=== PATIENT | male | born 1975 | race Caucasian/White ===

== ENCOUNTER 2017-01-25 00:39 | Observation (INO) | payer OTHER ==
[~2017-01-25] VITALS: Ht 172.7 cm; Wt 141.0 kg
--- NOTE | 2017-01-25 03:20 | NUR ---
PT ARRIVED TO UNIT FROM E.D VIA STRETCHER. PT AMBULATES INDEPENDENTLY IN ROOM, STEADY ON FEET. PT UP TO BATHROOM, VOIDING IN URINAL WITHOUT DIFFICULTY. IV FLUIDS INITIATED PER MD ORDERS, IV SITE PATENT AND INTACT. ADMISSION AND HISTORY COMPLETE. PT ALERT AND ORIENTED. PT DENIES ANY N/V, SOB, CHEST PAIN, PAIN AT THIS TIME. PT STATES PAIN MEDICATION GIVEN IN ED WAS EFFECTIVE FOR EPIGASTRIC PAIN. SCD'S IN PLACE. PT DROWSY, BUT EASILY AROUSABLE. CALL LIGHT WITHIN REACH. PT DENIES ANY FURTHER NEEDS AT THIS TIME.
--- NOTE | 2017-01-25 04:00 | NUR ---
PER REPORT FROM Jaci PT DESATS DURING SLEEP, PLACED PT ON 2 LPM O2 VIA NASAL CANNULA. PT HAS HX [place]O WITH NONCOMPLIANCE OF CPAP. PT COOPERATIVE WITH WEARING O2.
--- NOTE | 2017-01-25 06:46 | NUR ---
PT RESTING IN BED SLEEPING, WAKES EASILY TO VERBAL STIMULATION. PT AMBULATING INTO BATHROOM INDEPENDENTLY, VOIDING IN URINAL WITHOUT DIFFICULTY. IV FLUIDS INFUSING WITHOUT DIFFICULTY. PT DENIES ANY PAIN, N/V AT THIS TIME. CALL LIGHT WITHIN REACH. PT DENIES ANY FURTHER NEEDS AT THIS TIME.
--- NOTE | 2017-01-25 07:30 | NUR ---
PT IN BED, AWAKE, ALERT. RECIEVED BEDSIDE REPORT FROM RADHA MARCH.
--- NOTE | 2017-01-25 08:45 | NUR ---
PATIENT UP TO USE BATHROOM. NO NEEDS AT THIS TIME. LET PATIENT KNOW I WILL BE BACK IN TO TALK ABOUT A SHOWER.
--- NOTE | 2017-01-25 09:20 | NUR ---
PT IN BED, RECIEVING IV BOLUS. ALERT, ORIENTED X 4. REPORTS THAT HE REALLY WANTS TO SMOKE A CIGARETTE, STATES THAT HE WOULD GO OUT FRONT OF THE HOSPITAL AND SMOKE IF HE WERE ABLE TO. OFFERED TO REQUEST NICOTINE REPLACEMENT, PT REFUSED. STATED THAT HE DOES NOT LIKE NICOTINE PATCHES, GUM, OR LOZENGES. STATES "MY PAIN LEVEL IS FINE RIGHT NOW".
--- NOTE | 2017-01-25 10:33 | NUR ---
PT IN BED, DENIES NEEDS. IVF INFUSING. PT REMAINS NPO.
--- NOTE | 2017-01-25 10:40 | NUR ---
PATIENT LAYING DOWN IN BED WATCHING TV. CALL BUTTON IN REACH. LEFT TOOTH BRUSH OUT FOR HIM TO USE WHEN NEEDED. TALKED ABOUT TAKING A SHOWER THIS AFTERNOON BEFORE SURGERY. PATIENT STATES THAT HE'S GOING TO GO OUTSIDE TO SMOKE WHEN HIS ARRIVES. LET PATIENT KNOW OUR POLICY ABOUT NO SMOKING ON HOSPITAL GROWNS. PATIENT UPSET. NOTIFIED CHARGE NURSE.
--- NOTE | 2017-01-25 11:00 | NUR ---
PATIENT CALLED TO SHOWER. WHEN I ENTERED THE ROOM PATIENT DESIDED THAT HE WILL WAIT TO SHOWER AFTER HIS GETS HER AND GOES OUTSIDE WITH HIM TO SMOKE. REMINDED PATIENT ABOUT OUR POLICY AND WHY WE HAVE OUR POLICY. PATIENT STATES THAT HE IS VERY STUBORN. NOTIFY CHARGE NURSE. CHARGE NURSE INTO SEE PATIENT.
--- NOTE | 2017-01-25 11:00 | NUR ---
ASKED BY STAFF TO SPEAK WITH PATIENT REGARDING WANTING TO GO OUT TO SMOKE. SPOKE WITH PATIENT IN ROOM. SOCIAL SERVICE ASSESSMENT DONE. DISCUSSED PATIENTS QUESTIONS REGARDING GOING OUTSIDE TO SMOKE. EXPLAINED NON-SMOKING POLICY ON ALL GROUNDS. OFFERED TO CONTACT DR REGARDING USING A PATCH OR OTHER NICOTINE DEVICES. PATIENT REFUSED. CHARGE NURSE CAME INTO THE ROOM, SHE ALSO SPOKE WITH HIM AND OFFERED NICOTINE DEVICES. HE REFUSED AGAIN. EXPLAINED IF HE CHANGED HIS MIND, WE CAN STILL CALL .
--- NOTE | 2017-01-25 11:20 | NUR ---
RN IN ROOM WITH PATIENT. CALL BUTTON IN REACH.
--- NOTE | 2017-01-25 11:26 | NUR ---
CALL TO DR. MCHUGH REGARDING PATIENT WANTING TO LEAVE THE BUILDING AND SMOKE. ORDER FOR 1MG OF IV ATIVAN AND NICOTINE PATCH. MEDICATIONS GIVEN TO PATIENT.
--- NOTE | 2017-01-25 13:40 | NUR ---
PATIENT RESTING IN BED WITH EYES CLOSED. PATIENT TOO SLEEPY FROM MEDICATION TO SHOWER AT THIS TIME. CALL BUTTON IN REACH.
--- NOTE | 2017-01-25 13:41 | NUR ---
PT SLEEPING SOUNDLY, NO S/S DISTRESS OR DISCOMFORT. SCHEDULED ANCEF IV GIVEN.
--- NOTE | 2017-01-25 15:08 | NUR ---
PT TO DAY SURGERY VIA STRETCHER ACCOMPANIED BY RADHA MICHAEL.
--- NOTE | 2017-01-25 17:22 | NUR ---
PATIENT WAS INSTRUCTED ON SURGICAL [place]IP[place]OWN, AND LEFT TO COMPLETE IT. INSTEAD, PATIENT GAVE HIMSELF A SHOWER. IV WAS NOT WRAPPED AND NURSE WAS NOTIFIED.
--- NOTE | 2017-01-25 17:42 | NUR ---
01/25/17 1742 Corrie Rodriguez 1735-PATIENT ARRIVED TO PACU ON 9L MASK O2 SAT 98% NONAROUSABLE. SR. 3 LAP SITES TO ABDOMEN CDI. 174-PATIENT AROUSING PULLING AT O2 MASK AND RUBBING FACE. PATIENT EDUCATED ON IMPORTANCE OF MASK AND REORIENTED TO SITUATION. SNORES DOES HAVE SLEEP APNEA AND DOES NOT USE CPAP. 174-PATIENT SLEEPING O2 92% SNORING RA.
[2017-01-25] MEDS ORDERED: NICOTINE PATCH1 EAC1 TD (17:56)
[2017-01-25] MEDS ORDERED: NORCO 5-325 TA1 EACH PO (17:57)
--- NOTE | 2017-01-25 18:34 | NUR ---
PT TO FLOOR, TO ROOM 124 VIA STRETCHER ACCOMPANIED BY JACKSON AIRCRAFT MAINTENANCE DIRECTOR. PT MOVED SELF FROM STRETCHERS TO BED BY SCOOTING OVER. , FRANSISCO IN ROOM WITH PT. RECIEVED BEDSIDE REPORT FROM RADHA PAZ. PT TO ROOM 124 AT 1825. PT AWAKE BUT DROWSY. HAS 4 LAP SITES TO ABDOMEN, 1 ABOVE UMBILICUS, 1 SUPERIOR TO THAT, 1 RUQ, 1 RLQ. STERI STRIPS INTACT TO ALL 4, SMALL AMOUNT OF SANGUAINOUS DRAINAGE PRESENT TO ALL 4 SITES. PT IS ON 3L O2 VIA NC, SAT 95%.
--- NOTE | 2017-01-25 19:05 | NUR ---
PT TOLERATED CLEAR LIQUIDS, IS NOW EATING PUDDING AND GRAHM CRACKERS. DENIES NAUSEA. PT USED INSENTIVE SPIROMETER. EDUCATED ON USE, PT VERBALIZED UNDERSTANDING.
--- NOTE | 2017-01-25 19:50 | NUR ---
PT ASSESSMENT COMPLETE. PT RATES ABD PAIN 5-6/10, PT STATES "IT'S NOT BAD". OFFERED PAIN MEDICATION, PT STATES HE WOULD LIKE A BOXED LUNCH FIRST WHICH HAS BEEN ORDERED. PT UP TO BATHROOM WITH SBA, TOLERATING AMBULATION WELL. PT HAS PRODUCTIVE COUGH. PT ON 3 LPM O2 VIA NASAL CANNULA, SATS 95% PER CONTINUOUS PULSE OXIMETER. PT DENIES ANY N/V, TOLERATING JELLO AND PUDDING AT THIS TIME. LAP SITES x4 TO ABD HAVE STERI STRIPS THAT ARE INTACT, SHADOWING NOTED. REINFORCED UMBILICUS SITE WITH GAUZE. IV FLUIDS INFUSING WITHOUT DIFFICULTY. VS COMPLETE. PT NOW AMBULATING IN THE GARDNER WITH STRAIGHTENING MACHINE OPERATOR, TOLERATING AMBULATION WELL. PT DENIES ANY FURTHER NEEDS AT THIS TIME.
--- NOTE | 2017-01-25 20:04 | NUR ---
AMBULATE PATIENT AROUND THE NURSE STATION X1. PATIENT DENIED ANY DIZZINES AND NAUSEA. PATIENT TOLARATED WELL, STATED PAIN IS IN NO.5.
--- NOTE | 2017-01-25 21:30 | NUR ---
PT RATES PAIN 5-6/10, 2 TABS NORCO GIVEN. PT STATES "THEY DON'T WORK, BUT I WILL TRY THEM I GUESS". APPLESAUCE BROUGHT TO PT PER PT REQUEST. PT TOLERATING PO WELL. IV FLUIDS INFUSING WITHOUT DIFFICULTY. ABDOMINAL LAP SITES REMAIN UNCHANGED, STERI STRIP WITH SHADOWING NOTED. CALL LIGHT WITHIN REACH. PT DENIES ANY FURTHER NEEDS AT THIS TIME.
--- NOTE | 2017-01-25 23:50 | NUR ---
PT SLEEPING, RR EVEN AND UNLABORED. PT APPEARS COMFORTABLE AT THIS TIME. SATS 95% ON 3 LPM O2. IV FLUIDS INFUSING WITHOUT DIFFICULTY. CALL LIGHT WITHIN REACH.
--- NOTE | 2017-01-26 00:40 | NUR ---
BOXED LUNCH GIVEN PER PT REQUEST. PT TOLERATING PO WELL. IV FLUIDS INFUSING WITHOUT DIFFICULTY. ABDOMINAL LAP SITES DRESSING UNCHANGED, SHADOWING NOTED TO STERI STRIPS. CALL LIGHT WITHIN REACH. PT DENIES ANY FURTHER NEEDS AT THIS TIME.
--- NOTE | 2017-01-26 02:38 | NUR ---
PT SLEEPING, RR EVEN AND UNLABORED. PT APPEARS COMFORTABLE AT THIS TIME. PT ON 3 LPM O2 VIA NASAL CANNULA. IV FLUIDS INFUSING WITHOUT DIFFICULTY. CALL LIGHT WITHIN REACH.
--- NOTE | 2017-01-26 04:45 | NUR ---
PT UP TO BATHROOM INDEPENDENTLY, VOIDING WELL. PT DENIES ANY NEED FOR PAIN MEDICATION AT THIS TIME. IV FLUIDS INFUSING WITHOUT DIFFICULTY. PT UP AMBULATING IN HALLS WITH WELLNESS RN, TOLERATING AMBULATION WELL. COFFEE AND WATER GIVEN PER PT REQUEST. PT DENIES ANY FURTHER NEEDS AT THIS TIME.
--- NOTE | 2017-01-26 06:00 | NUR ---
PT UP AMBULATING IN ROOM INDEPENDENTLY. PT C/O HAVING IV FLUIDS AND BEING ON A CONTINUOUS PULSE OXIMETER. CALLED MD AND RECEIVED ORDER TO SALINE LOCK FLUIDS.
--- NOTE | 2017-01-26 07:45 | NUR ---
ASSISTED PATIENT WITH ORDERING BREAKFAST. NO OTHER NEEDS AT THIS TIME. CALL BUTTON IN REACH.
--- NOTE | 2017-01-26 08:00 | NUR ---
PATIENT SITTING UP IN BED WATCHING TV AND EATING BREAKFAST. NO OTHER NEEDS AT THIS TIME.
--- NOTE | 2017-01-26 10:06 | NUR ---
PATIENT SITTING UP IN BED WATCHING TV. WASHED FACE AND HANDS. SHOWED PATIENT ORAL CARE SUPPLIES OUT FOR USE. PATIENT REFUSED SHOWER AND CLEAN GOWN. HE STATES THAT HE MIGHT GET TO GO HOME TODAY AND IF NOT HE'S LEAVING ANYWAYS SO HE CAN SMOKE A CIGARRETE. CALL BUTTON IN REACH. FRESH ICE WATER AND PUDDING GIVEN. NO OTHER NEEDS AT THIS TIME.
--- NOTE | 2017-01-26 10:59 | NUR ---
PT WALKING IN HALLWAY IWTH . STATES THE NORCO HAS HELPED AND IT NOW ONLY HURTS WHEN HE FIRST STANDS UP. DENIES FURTHER CONCERNS.
--- NOTE | 2017-01-26 13:20 | NUR ---
Patient in and out of room drinking coffee and walking up to nurses station and back to room.
--- NOTE | 2017-01-26 13:57 | NUR ---
PT CONTINUES TO PACE THE HALLWAY. ANXIOUS TO BE DISCHARGED.
--- NOTE | 2017-01-26 15:17 | NUR ---
PT DISCHARGED HOME WITH . IV REMOVED WNL. PT TOLERATED WELL ALTHOUGH DID NOT APPRECIATE THE HAIR REMOVAL. EDUCATION GIVEN. PT AND VERBALIZED UNDERSTANDING. DRESSINGS CLEAN, DRY AND INTACT. INSTRUCTED ON MEDICATIONS, INCISION SITES, FOLLOWUP APPT AND CALLING THE OFFICE FOR WORK RELEASE. VS STABLE.
--- NOTE | 2017-02-19 07:48 | OR ---
[facility] [address], [place] [address] Signed DATE OF PROCEDURE: 01/25/17 PREOPERATIVE DIAGNOSES Acute calculous cholecystitis with hydrops. Morbid obesity. Sleep apnea. POSTOPERATIVE DIAGNOSES Acute calculous cholecystitis with hydrops. Morbid obesity. Sleep apnea. PROCEDURES Laparoscopic cholecystectomy with intraoperative cholangiogram, prolonged, complicated, difficult. Surgeon directed fluoroscopy. SURGEON: Davian Mchugh MD. ANESTHESIA General endotracheal (Bhavna Finley CRNA) and local 20 mL of 0.25% Marcaine with Epinephrine. INDICATION This 42-year-old morbidly obese white man weighs nearly 309 pounds and has had episodes of biliary colic and right upper abdominal pain for many months. He moved recently from [place], [place] to [place]. He had been evaluated in [place], [place] for this and was noted to have gallstones, but was dissuaded from operation due to his risk of operation at least according to the patient. He has had unrelenting pain since 8:00 p.m. last night and was found on ultrasound to have a distended gallbladder with a single gallstone causing gallbladder hydrops. Admittedly, he is quite obese and has numerous comorbidities including sleep apnea syndrome (previously treated since discontinued), continued smoking, and other morbidities. He has been fluid resuscitated and given antibiotics and is taken to operation at this time for cholecystectomy. The risks of bleeding, infection, bile duct injury, need for open procedure, and other unforeseen complications was reviewed in detail. He understands and wished to proceed. FINDINGS His airway, though slightly challenging, was accomplished without problem by the lead designer using a GlideScope. At operation, he was found to have a remarkably fatty Electronically Signed By: DAVIAN MCHUGH MD 02/19/17 0748 PATIENT NAME: YULIYA SMITH OPERATIVE REPORT DATE OF : 73 PHYSICIAN: DAVIAN MCHUGH MD REPORT #: [id number] REPORT IS CONFIDENTIAL AND NOT TO BE RELEASED WITHOUT AUTHORIZATION [facility] [address], [place] [address] Signed liver. The gallbladder was markedly distended and inflamed. Operation was prolonged, complicated, and difficult on the basis of his obesity and so on. It was accomplished safely however. Intraoperative cholangiogram was normal. The cystic duct was relatively long. The gallbladder once excised showed acute and chronic inflammatory changes to mucosa and the gallstone that had been wedged in the infundibulum was teardrop shaped and approximately 2-3 cm in length and 2 cm in width. There was a small umbilical hernia at the umbilicus proper with some omental fat within it. This was not disturbed. A supraumbilical incision was used. DESCRIPTION OF PROCEDURE The patient was brought to the operating room, given a general endotracheal anesthetic with GlideScope technique. This went without complication. Preoperative antibiotic Ancef was given. Sequential compression device stockings used and Heparin subcutaneously administered. The abdomen was clipped and prepared with a Chlorhexidine solution. Due to his rather enormous abdominal girth, it was clear that modification to approach would be necessary. Palpation at the umbilicus revealed a small nonreducible hernia, probably a fat. A supraumbilical incision was made and using an open Noé cannula technique, pneumoperitoneum was achieved to a level of 14 mmHg of carbon dioxide gas. Intraabdominal inspection was undertaken showing no sign of ascites or carcinomatosis. The omentum was draped over the right lobe of the liver. The liver was markedly fatty and had impressions on it from the ribs. Three additional trocars were placed in usual configuration, midline, right midclavicular, and right anterior axillary line. The gallbladder was revealed and found to be tensed and distended and hydropic as expected but able to be grasped. Elevation of the gallbladder demonstrated just how heavy the right lobe of the liver was. As it could not be fully elevated over the edge, the midportion was grasped and then this allowed for elevation. The infundibulum was grasped and using blunt and electrocautery dissection, the triangle of Calot was dissected free. Very edematous and fatty peritoneum overlying the infundibulum was noted. Ultimately, the cystic artery and cystic duct were identified. The cystic artery was doubly clipped and divided. A clip was applied across gallbladder cystic duct junction and a transverse choledochotomy made in the cystic duct. Egress of clear yellow bile was noted. Using an Compass-EOS type cholangiocatheter system, intraoperative cholangiography was undertaken with surgeon directed fluoroscopy. Free flow of contrast was noted into the biliary tree with prompt emptying into the duodenum. There was no sign of filling defect or biliary anomaly. The proximal biliary radicals were normal as well. The catheter was removed and the cystic duct was triply clipped and divided and the gallbladder dissected free in a retrograde fashion using electrocautery. The gallbladder was placed in an Endobag and extracted through the infraumbilical port site, opened on the back table and found to have chronic and acute inflammatory changes of mucosa and a single large teardrop shaped gallstone which was quite large. There was no sign of neoplasm. Irrigation was undertaken in subhepatic space. There was no sign of bile leak, bleeding, Electronically Signed By: DAVIAN MCHUGH MD 02/19/17 0748 PATIENT NAME: YULIYA SMITH Adilia OPERATIVE REPORT DATE OF : 73 PHYSICIAN: DAVIAN MCHUGH MD REPORT #: [id number] REPORT IS CONFIDENTIAL AND NOT TO BE RELEASED WITHOUT AUTHORIZATION [address] [place], [place] [address] Signed or other problems. The trocars were removed under direct visualization showing no sign of bleeding. Infraumbilical and epigastric port sites were closed with interrupted 0 Vicryl suture and additionally 2-0 PDS suture based on his obesity. Palpation of the umbilical defect in visualization as well showed a small amount of omentum to have been in the 1 cm defect at the umbilicus. This umbilical hernia was left undisturbed. There was certainly no hollow viscus within it or potentially to go into it. Steri-Strips were applied after injection of 20 mL of 0.25% Marcaine with Epinephrine. The patient was carefully extubated and transferred to recovery in good condition having suffered no complication. Sponge, needle, and counts reported as correct x3. MD ERNST Maciel/Radha /[id number] cc: Nanette Hancock MD Electronically Signed By: DAVIAN MCHUGH MD 02/19/17 0748 PATIENT NAME: YULIYA SMITH OPERATIVE REPORT DATE OF : 73 PHYSICIAN: DAVIAN MCHUGH MD REPORT #: [id number] REPORT IS CONFIDENTIAL AND NOT TO BE RELEASED WITHOUT AUTHORIZATION
--- NOTE | 2017-02-19 08:27 | HP ---
[facility] [address], [place] [address] Signed DATE OF ADMISSION: 01/25/17 REASON FOR ADMISSION Acute calculous cholecystitis with hydrops of gallbladder. HISTORY OF PRESENT ILLNESS This morbidly obese white man, recently moved from [place] to [place]. He has taken a new job at [employer]. He is and has 3 children. He has had episodes of right upper abdominal pain over a number of months. Most recently, yesterday, he had unremitting right subcostal pain. After 2 hours of severe pain, he presented to the emergency room. He was already known to have gallstones based on ultra sound performed in [place] ([place], [place] area). The gallbladder ultrasound was once again performed under the direction of Dr. Hancock, which confirmed a hydropic gallbladder with a stone obstructing the gallbladder. He is admitted for further evaluation and care. PAST MEDICAL HISTORY Includes tonsillectomy in the distant past as well as right leg abscess. He has never had abdominal surgery. MEDICATIONS: He does not take medications usually. ALLERGIES: He has no known drug allergies. SOCIAL HISTORY He is and as described he has 3 children. 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 He is quite anxious to return to work. He does not want to lose his job, he says. REVIEW OF SYSTEMS He denies any chest pain. He has had no shortness of breath. Denies dysphagia or hematemesis or blood per rectum. No dysuria. PHYSICAL EXAMINATION GENERAL: Morbidly obese, white man. HEENT: Examination of his oropharynx shows a very difficult airway, it appears to me. Trachea is midline. CHEST: Clear. HEART: Regular without murmur. ABDOMEN: Obese, but soft. There is no significant tenderness at this moment on deep palpation. EXTREMITIES: No clubbing, cyanosis, or edema. LABORATORY DATA Electronically Signed By: DAVIAN MCHUGH MD 02/19/17 0827 PATIENT NAME: YULIYA SMITH HISTORY AND PHYSICAL DATE OF : 73 PHYSICIAN: DAVIAN MCHUGH MD REPORT #: [id number] REPORT IS CONFIDENTIAL AND NOT TO BE RELEASED WITHOUT AUTHORIZATION [facility] [address], [place] [address] Signed Show white count of 9.4, hematocrit 45.5, platelets 138,000. Chem profile is normal. Creatinine 1.04, glucose 144. Liver enzymes are normal. Lipase is 60. Urinalysis is normal except for specific gravity of 1.031. I have reviewed the ultrasound images available on the system currently. A dilated gallbladder is noted with somewhat thickened wall. ASSESSMENT AND PLAN He has acute cholecystitis with hydrops of the gallbladder indicative of an obstructing stone at the neck of the gallbladder. Surgical cure would include cholecystectomy. A laparoscopic approach would be most appropriate if possible, though he may require an open procedure. It is recognized that he has somewhat difficult airway, and Anesthesia consultation will be undertaken prior to operation . I would anticipate operation could be performed today. The risks of bleeding, infection, bile duct injury, need for open procedure, and other unforeseen complications was reviewed in detail. He understands. MD ERNST Maciel/Radha /[id number] cc: Nanette Hancock MD Electronically Signed By: DAVIAN MCHUGH MD 02/19/17 0827 PATIENT NAME: YULIYA SMITH Adilia HISTORY AND PHYSICAL DATE OF : 73 PHYSICIAN: DAVIAN MCHUGH MD REPORT #: [id number] REPORT IS CONFIDENTIAL AND NOT TO BE RELEASED WITHOUT AUTHORIZATION
== END 2017-01-26 15:15 | disposition home or self-care (01) ==
LOC: ED 00:39 → MS 00:40
PROVIDERS: ADMIT Surgery
PROC: BF101ZZ Fluoroscopy of Bile Ducts using Low Osmolar Contrast (ICD-10-PCS; 2017-01-25)
PROC: 0FT44ZZ Resection of Gallbladder, Percutaneous Endoscopic Approach (ICD-10-PCS; principal; 2017-01-25 16:00)
DX: K80.13 Calculus of gallbladder with acute and chronic cholecystitis with obstruction (principal); K82.1 Hydrops of gallbladder; G47.30 Sleep apnea, unspecified; F17.200 Nicotine dependence, unspecified, uncomplicated; K76.0 Fatty (change of) liver, not elsewhere classified; E66.01 Morbid (severe) obesity due to excess calories; Z68.42 Body mass index [BMI] 45.0-49.9, adult
CPT/HCPCS: 00790; 74300; 76705; 80053; 81001; 83690; 85025; 94640; 94760; 94762; 96361; 96372; 96374; 96375; 96376; 99285; 99406; G0378; J0330; J0690; J1100; J1170; J1644; J1885; J2060; J2250; J2405; J2704; J3010; J7030; J7120; Q9967

== ENCOUNTER 2017-03-21 19:27 | Emergency (ER) | payer OTHER ==
[~2017-03-21] VITALS: Ht 172.7 cm; Wt 141.0 kg
[~2017-03-21 19:27] MED LIST: NICOTINE PATCH1 EAC1 TD; NORCO 5-325 TA1 EACH PO
== END 2017-03-21 21:58 | disposition home or self-care (01) ==
LOC: ED 19:27
DX: K42.9 Umbilical hernia without obstruction or gangrene (principal); F17.200 Nicotine dependence, unspecified, uncomplicated; Z90.49 Acquired absence of other specified parts of digestive tract; Z98.890 Other specified postprocedural states
CPT/HCPCS: 74177; 80053; 81001; 83690; 85025; 96361; 96372; 96374; 99284; J1170; J2405; J7030; Q9967

== ENCOUNTER 2017-04-15 17:47 | Emergency (ER) | payer OTHER ==
[~2017-04-15] VITALS: Ht 172.7 cm; Wt 139.7 kg
[2017-04-15] MEDS ORDERED: OMEPRAZOLE20 MG PO (19:51)
== END 2017-04-15 21:20 | disposition home or self-care (01) ==
LOC: ED 17:47
DX: K27.9 Peptic ulcer, site unspecified, unspecified as acute or chronic, without hemorrhage or perforation (principal); F17.200 Nicotine dependence, unspecified, uncomplicated; Z90.89 Acquired absence of other organs; Z90.49 Acquired absence of other specified parts of digestive tract
CPT/HCPCS: 80053; 81001; 85025; 96361; 96374; 96375; 96376; 99283; J1170; J2405; J7040

== ENCOUNTER 2017-05-24 20:42 | Emergency (ER) | payer OTHER ==
[~2017-05-24] VITALS: Ht 172.7 cm; Wt 146.1 kg
[~2017-05-24 20:42] MED LIST changes: +OMEPRAZOLE20 MG PO
== END 2017-05-24 21:08 | disposition home or self-care (01) ==
LOC: ED 20:42
DX: S09.90XA Unspecified injury of head, initial encounter (principal); W20.8XXA Other cause of strike by thrown, projected or falling object, initial encounter; Y99.0 Civilian activity done for income or pay
CPT/HCPCS: 99282

== ENCOUNTER → 2017-06-18 | Emergency (ER) | payer OTHER ==
[~2017-06-18] VITALS: Ht 172.7 cm; Wt 146.1 kg
[~2017-06-18] MED LIST changes: +ONDANSETRON ODT8 MG PO
== END ==
LOC: ED 19:33
DX: K52.9 Noninfective gastroenteritis and colitis, unspecified (principal); F17.200 Nicotine dependence, unspecified, uncomplicated
CPT/HCPCS: 80053; 81001; 83690; 85025; 96374; 99284; J2405; J7030

== ENCOUNTER 2017-07-22 17:11 | Emergency (ER) | payer OTHER ==
[~2017-07-22] VITALS: Ht 172.7 cm; Wt 140.6 kg
[~2017-07-22 17:11] MED LIST changes: -ONDANSETRON ODT8 MG PO
[2017-07-22] MEDS ORDERED: ONDANSETRON ODT8 MG PO (19:36)
== END 2017-07-22 19:50 | disposition home or self-care (01) ==
LOC: ED 17:11
DX: K29.00 Acute gastritis without bleeding (principal); F17.210 Nicotine dependence, cigarettes, uncomplicated
CPT/HCPCS: 80053; 83690; 85025; 99283

== ENCOUNTER 2018-01-05 20:51 | Emergency (ER) | payer OTHER ==
[~2018-01-05] VITALS: Ht 172.7 cm; Wt 135.4 kg
[~2018-01-05 20:51] MED LIST changes: +ONDANSETRON ODT8 MG PO
[2018-01-06] MEDS ORDERED: ZOFRAN ODT4 MG PO (03:01)
[2018-01-06] MEDS ORDERED: NORCO 5-325 TA1 EACH PO (03:01)
[2018-01-06] MEDS ORDERED: GEMFIBROZIL600 MG PO (03:01)
== END 2018-01-06 03:13 | disposition home or self-care (01) ==
LOC: ED 20:51
DX: K85.90 Acute pancreatitis without necrosis or infection, unspecified (principal); E78.5 Hyperlipidemia, unspecified; F17.200 Nicotine dependence, unspecified, uncomplicated
CPT/HCPCS: 74177; 80053; 80061; 81001; 83690; 85025; 96360; 99284; J7030; Q9967

== ENCOUNTER 2018-09-06 19:11 | Emergency (ER) | payer OTHER ==
[~2018-09-06] VITALS: Ht 172.7 cm; Wt 124.5 kg
[~2018-09-06 19:11] MED LIST changes: +GEMFIBROZIL600 MG PO; +ZOFRAN ODT4 MG PO
[2018-09-06] MEDS ORDERED: LISINOPRIL20 MG PO (19:22)
[2018-09-06] MEDS ORDERED: OMEPRAZOLE20 MG PO (19:22)
[2018-09-06] MEDS ORDERED: METFORMIN HCL500 MG PO (19:22)
== END 2018-09-06 20:51 | disposition home or self-care (01) ==
LOC: ED 19:11
DX: R10.13 Epigastric pain (principal); Z90.89 Acquired absence of other organs; F17.200 Nicotine dependence, unspecified, uncomplicated; Z90.49 Acquired absence of other specified parts of digestive tract; Z79.899 Other long term (current) drug therapy
CPT/HCPCS: 80053; 81001; 83690; 85025; 96361; 96374; 99284-25; J7030

== ENCOUNTER 2018-10-17 15:26 | Emergency (ER) | payer OTHER ==
[~2018-10-17] VITALS: Ht 172.7 cm; Wt 128.6 kg
[~2018-10-17 15:26] MED LIST changes: +LISINOPRIL20 MG PO; +METFORMIN HCL500 MG PO
== END 2018-10-17 15:43 | disposition home or self-care (01) ==
LOC: ED 15:26
DX: M25.561 Pain in right knee (principal)

== ENCOUNTER 2018-10-17 15:49 | Emergency (ER) | payer OTHER ==
[~2018-10-17] VITALS: Ht 172.7 cm; Wt 128.6 kg
--- OUTSIDE RECORDS SUMMARY | 2018-10-17 15:52 | XMS ---
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 02/07/2018 18:38 - Patient eloped before treatment completed. Details: LWBS CRITERIA MET - [facility] - 2 Visits in [address] Huertas Primary [facility] Current PHONE: Unknown Milton has no Care Guidelines for this patient. E.Leatha. V[facility] COUNT (12 MO.) [facility] TOTAL 6 NOTE: Visits indicate total known visits. ED/UCC VISIT TRACKING (12 MO.) 10/17/2018 15:50 [facility] [place] TYPE: Emergency COMPLAINT: - RIGHT KNEE PAIN 10/17/2018 15:27 [facility] [place] TYPE: Emergency COMPLAINT: - RIGHT KNEE PAIN 09/06/2018 19:11 [facility] [place] TYPE: Emergency COMPLAINT: - ABD PAIN DIAGNOSES: - Other fdc (current) drug therapy - Epigastric pain - Acquired absence of other organs - Nicotine dependence, unspecified, uncomplicated - Acquired absence of other specified parts of digestive tract 02/10/2018 11:35 [facility] [place] TYPE: Emergency COMPLAINT: - BILATERAL KNEE PAIN 02/07/2018 18:38 [facility]unez [place] TYPE: Emergency COMPLAINT: - UPPER ABD PAIN/LWOB @1939 DIAGNOSES: - Procedure and treatment not carried out due to patient leaving prior to being seen by health care provider 01/05/2018 20:52 [facility] [place] TYPE: Emergency COMPLAINT: - ABDOMINAL PAIN DIAGNOSES: - Upper abdominal pain, unspecified - Nicotine dependence, unspecified, uncomplicated - Acute pancreatitis without necrosis or infection, unspecified - Hyperlipidemia, unspecified INPATIENT VISIT TRACKING (12 MO.) No inpatient visits to display in this time frame [email or web address]
== END 2018-10-17 16:10 | disposition home or self-care (01) ==
LOC: ED 15:49
DX: M25.561 Pain in right knee (principal)

== ENCOUNTER 2019-03-25 23:50 | Emergency (ER) | payer OTHER ==
[~2019-03-25] VITALS: Ht 172.7 cm; Wt 127.0 kg
--- OUTSIDE RECORDS SUMMARY | 2019-03-25 23:52 | XMS ---
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 Details: LWBS CRITERIA MET - [facility] - Has Care Guidelines CARE PROVIDERS AYAD SIMMS Physician Road Builder 10/18/2018-Current PHONE: [phone] Dr Huertas Primary Care Current PHONE: Unknown Milton has no Care Guidelines for this patient. Care History Medical/Surgical 11/09/2018 [facility] - EOIPA REFERRAL MADE- PATIENT HAS EOCCO AND NEEDS CLOSE FOLLOW UP. E.D. VISIT COUNT (12 MO.) [address] [facility] TOTAL 5 NOTE: Visits indicate total known visits. ED/UCC VISIT TRACKING (12 MO.) 03/25/2019 23:50 [facility] [place] TYPE: Emergency COMPLAINT: - L SIDE OF FACE PAIN 11/08/2018 14:09 [facility] [place] TYPE: Emergency COMPLAINT: - LT FLANK PAIN,NAUSEA,VOMITING DIAGNOSES: - Nicotine dependence, unspecified, uncomplicated - Unspecified abdominal pain 10/17/2018 15:50 [facility] [place] TYPE: Emergency COMPLAINT: - RIGHT KNEE PAIN DIAGNOSES: - Pain in right knee 10/17/2018 15:27 [facility] [place] TYPE: Emergency COMPLAINT: - RIGHT KNEE PAIN DIAGNOSES: - Pain in right knee 09/06/2018 19:11 [facility] [place] TYPE: Emergency COMPLAINT: - ABD PAIN DIAGNOSES: - Other termite control representative (current) drug therapy - Epigastric pain - Acquired absence of other organs - Nicotine dependence, unspecified, uncomplicated - Acquired absence of other specified parts of digestive tract INPATIENT VISIT TRACKING (12 MO.) No inpatient visits to display in this time frame [email or web address]
[2019-03-26] MEDS ORDERED: LISINOPRIL-HCT1 EAC2 PO (00:03)
== END 2019-03-26 00:20 | disposition home or self-care (01) ==
LOC: ED 23:50
DX: R59.0 Localized enlarged lymph nodes (principal); F17.200 Nicotine dependence, unspecified, uncomplicated; Z79.899 Other long term (current) drug therapy; Z79.84 Long term (current) use of oral hypoglycemic drugs
CPT/HCPCS: 99283

== ENCOUNTER 2019-04-05 21:50 | Emergency (ER) | payer OTHER ==
[~2019-04-05] VITALS: Ht 172.7 cm; Wt 142.4 kg
[~2019-04-05 21:50] MED LIST changes: +LISINOPRIL-HCT1 EAC2 PO
--- OUTSIDE RECORDS SUMMARY | 2019-04-05 21:52 | XMS ---
PreManage Notification: YULIYA SMITH Security Securities And Real Estate Director Events 1 event(s) in the past 18 months Most recent security events: Elopement at [facility] 02/07/2018 18:38 - Patient eloped before treatment completed. Details: LWBS CRITERIA MET - [facility] - Has Care Guidelines - [facility] - 2 Visits in 30 Days CARE PROVIDERS AYAD SIMMS Physician 10/18/2018-Current PHONE: [phone] Dr [facility] Current PHONE: Unknown Milton has no Care Guidelines for this patient. Care History Medical/Surgical 03/28/2019 [facility] - PATIENT HAS A FOLLOW UP APT WITH PCP - [facility] ON @ 11:30AM. 11/09/2018 [facility] - EOIPA REFERRAL MADE- PATIENT HAS EOCCO AND NEEDS CLOSE FOLLOW UP. E.D. VISIT COUNT (12 MO.) 6 [facility] [place] TOTAL 6 NOTE: Visits indicate total known visits. 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 [place] TYPE: Emergency COMPLAINT: - RIGHT KNEE PAIN DIAGNOSES: - Pain in right knee 10/17/2018 15:27 [facility] [place] TYPE: Emergency COMPLAINT: - RIGHT KNEE PAIN DIAGNOSES: - Pain in right knee 09[facility]06/2018 19:11 [facility] COMPLAINT: - ABD PAIN DIAGNOSES: - Other predatory animal exterminator (current) drug therapy - Epigastric pain - Acquired absence of other organs - Nicotine dependence, unspecified, uncomplicated - Acquired absence of other specified parts of digestive tract INPATIENT VISIT TRACKING (12 MO.) No inpatient visits to display in this time frame [id number]
[2019-04-05] MEDS ORDERED: PENICILLIN V P500 MG PO (22:17)
== END 2019-04-05 22:48 | disposition home or self-care (01) ==
LOC: ED 21:50
DX: K08.89 Other specified disorders of teeth and supporting structures (principal); F17.200 Nicotine dependence, unspecified, uncomplicated; Z79.899 Other long term (current) drug therapy; Z79.84 Long term (current) use of oral hypoglycemic drugs
CPT/HCPCS: 96372; 99283-25; J1885

== ENCOUNTER 2019-11-22 21:19 | Emergency (ER) | payer OTHER ==
[~2019-11-22] VITALS: Ht 172.7 cm; Wt 127.0 kg
[~2019-11-22 21:19] MED LIST changes: +PENICILLIN V P500 MG PO
--- OUTSIDE RECORDS SUMMARY | 2019-11-22 21:22 | XMS ---
PreManage Notification: YULIYA SMITH Security Steam Press Tender Events No recent Security Events currently on file CRITERIA MET - [facility] - Has Care Guidelines CARE PROVIDERS AYAD SIMMS Physician Naphtha Washing System Operator 10/18/2018-Current PHONE: [phone] [place] has no Care Guidelines for this patient. Care History Medical/Surgical 03/28/2019 [facility] - PATIENT HAS A FOLLOW UP APT WITH PCP - [facility] ON @ 11:30AM. 11/09/2018 [facility] - EOIPA REFERRAL MADE- PATIENT HAS EOCCO AND NEEDS CLOSE FOLLOW UP. E.Leatha. VISIT COUNT (12 MO.) 4 [facility] TOTAL 4 NOTE: Visits indicate total known visits. ED/UCC VISIT TRACKING (12 MO.) 11/22/2019 21:20 [facility] [place] TYPE: Emergency COMPLAINT: - HEADACHE,VOMITING,ABD PAIN 09/29/2019 20:24 [facility] [place] TYPE: Emergency COMPLAINT: - CHEST PAIN DIAGNOSES: - Acute pancreatitis without necrosis or infection, unspecified - Nicotine dependence, unspecified, uncomplicated - Unspecified abdominal pain - Type 2 diabetes mellitus without complications 04/05/2019 21:51 [facility] [place] TYPE: Emergency COMPLAINT: - DENTAL PAIN DIAGNOSES: - exterminator termite (current) use of oral hypoglycemic drugs - Nicotine dependence, unspecified, uncomplicated - Other specified disorders of teeth and supporting structures - Headache - Other ad terminal makeup operator (current) drug therapy 03/25/2019 23:[address] [facility] [place] TYPE: Emergency COMPLAINT: - L SIDE OF FACE PAIN DIAGNOSES: - Localized enlarged lymph nodes - Nicotine dependence, unspecified, uncomplicated - Other ad terminal makeup operator (current) drug therapy - Cervicalgia - alf (current) use of oral hypoglycemic drugs INPATIENT VISIT TRACKING (12 MO.) No inpatient visits to display in this time frame [email or web address]
== END 2019-11-23 00:46 | disposition home or self-care (01) ==
LOC: ED 21:19
DX: B34.9 Viral infection, unspecified (principal); F17.200 Nicotine dependence, unspecified, uncomplicated
CPT/HCPCS: 71045; 80053; 81001; 85025; 96374; 99284-25; J2405; J7030

== ENCOUNTER 2020-07-10 23:50 | Emergency (ER) | payer OTHER ==
[~2020-07-10] VITALS: Ht 172.7 cm; Wt 122.0 kg
[2020-07-11] MEDS ORDERED: GEMFIBROZIL600 MG PO (00:04)
[2020-07-11] MEDS ORDERED: LISINOPRIL-HCT1 EAC2 PO (00:04)
== END 2020-07-11 01:48 | disposition home or self-care (01) ==
LOC: ED 23:50
DX: R10.31 Right lower quadrant pain (principal); I10 Essential (primary) hypertension; E11.9 Type 2 diabetes mellitus without complications; Z87.891 Personal history of nicotine dependence; Z79.899 Other long term (current) drug therapy; Z79.84 Long term (current) use of oral hypoglycemic drugs
CPT/HCPCS: 74177; 80053; 81001; 83690; 85025; 99284-25; Q9967

== ENCOUNTER 2020-08-03 01:01 | Emergency (ER) | payer OTHER ==
[~2020-08-03] VITALS: Ht 172.7 cm; Wt 121.6 kg
--- OUTSIDE RECORDS SUMMARY | 2020-08-03 01:04 | XMS ---
PreManage Notification: YULIYA SMITH Security Code Inspector Events No recent Security Events currently on file CRITERIA MET - [facility] - 2 Visits in 30 Days CARE PROVIDERS AYAD SIMMS Physician Forge Heater 10/18/2018-Current PHONE: [phone] Milton has no Care Guidelines for this patient. Care History Medical/Surgical 11/28/2019 [facility] - [facility] CONTACTED PCP OFFICE-[facility]- [place] STATED PATIENT HAS BEEN SEEN BY PCP OFFICE ON 10/25/19. NO FOLLOW UP APT SCHEDULED. - THEY DID NOT RECEIVE RECENT ED RECORD-THEY WILL CONTACT PATIENT FOR A FOLLOW UP APT TO BE SCHEDULED. 03/28/2019 [facility] - PATIENT HAS A FOLLOW UP APT WITH PCP - [facility] ON @ 11:30AM. 11/09/2018 [facility] - EOIPA REFERRAL MADE- PATIENT HAS EOCCO AND NEEDS CLOSE FOLLOW UP. E.D. VISIT COUNT (12 MO.) 5 [facility] TOTAL 5 NOTE: Visits indicate total known visits. ED/UCC VISIT TRACKING (12 MO.) 08/03/2020 01:01 [facility] [place] TYPE: Emergency COMPLAINT: - LT EYE IRRITATION/LT ARM PAIN 08/02/2020 19:01 [facility] [place] TYPE: Emergency COMPLAINT: - L EYE IRRITATION 07/10/2020 23:[address] [facility] [place] TYPE: Emergency COMPLAINT: - ABDOMINAL PAIN DIAGNOSES: - terminal manager (current) use of oral hypoglycemic drugs - Essential (primary) hypertension - Other senior living (current) drug therapy - Type 2 diabetes mellitus without complications - Right lower quadrant pain - Personal history of nicotine dependence 11/22/2019 21:[address] [facility] [place] TYPE: Emergency COMPLAINT: - HEADACHE,VOMITING,ABD PAIN DIAGNOSES: - Viral infection, unspecified - Nicotine dependence, unspecified, uncomplicated - Contact with and (suspected) exposure to other viral communicable diseases - Headache 09/29/2019 20:[address] [facility] TYPE: Emergency COMPLAINT: - CHEST PAIN DIAGNOSES: - Acute pancreatitis without necrosis or infection, unspecified - Nicotine dependence, unspecified, uncomplicated - Unspecified abdominal pain - Type 2 diabetes mellitus without complications INPATIENT VISIT TRACKING (12 MO.) No inpatient visits to display in this time frame [id number]
== END 2020-08-03 02:15 | disposition home or self-care (01) ==
LOC: ED 01:01
DX: S50.12XA Contusion of left forearm, initial encounter (principal); H10.9 Unspecified conjunctivitis; I10 Essential (primary) hypertension; E11.9 Type 2 diabetes mellitus without complications; F17.200 Nicotine dependence, unspecified, uncomplicated; Z79.899 Other long term (current) drug therapy; Z79.84 Long term (current) use of oral hypoglycemic drugs; X58.XXXA Exposure to other specified factors, initial encounter
CPT/HCPCS: 73090; 99283-25

== ENCOUNTER 2020-11-14 06:17 | Emergency (ER) | payer OTHER ==
[~2020-11-14] VITALS: Ht 172.7 cm; Wt 120.0 kg
--- OUTSIDE RECORDS SUMMARY | 2020-11-14 06:26 | XMS ---
PreManage Notification: YULIYA SMITH Security Pot Room Supervisor Events 1 event(s) in the past 18 months Most recent security events: Elopement at [facility] 08/02/2020 19:01 - Other Details: PATIENT LWBS. CRITERIA MET - [facility] - Has Care Guidelines CARE PROVIDERS AYAD SIMMS Physician 10/18/2018-Current PHONE: [phone] Milton has no Care Guidelines for this patient. Care History Medical/Surgical 08/14/2020 [facility] - PATIENT WAS SEEN BY PCP THIEN SIMMS 08/14/20- NO FURTHER FOLLOW UP CONCERNS AT THIS TIME PER PATIENT. 11/28/2019 [facility] - [place] CONTACTED PCP OFFICE-[facility]- [place] STATED PATIENT HAS BEEN SEEN BY PCP OFFICE ON 10/25/19. NO FOLLOW UP APT SCHEDULED. - THEY DID NOT RECEIVE RECENT ED RECORD-THEY WILL CONTACT PATIENT FOR A FOLLOW UP APT TO BE SCHEDULED. 03/28/2019 [facility] - PATIENT HAS A FOLLOW UP APT WITH PCP - [facility] ON @ 11:30AM. E.D. VISIT COUNT (12 MO.) [address] [facility] TOTAL 5 NOTE: Visits indicate total known visits. ED/UCC VISIT TRACKING (12 MO.) 11/14/2020 06:18 [facility] [place] TYPE: Emergency COMPLAINT: - NAUSEA,RT SIDE PAIN 08/03/2020 01:01 [facility] [place] TYPE: Emergency COMPLAINT: - LT EYE IRRITATION/LT ARM PAIN DIAGNOSES: - Unspecified conjunctivitis - buttermaker (current) use of oral hypoglycemic drugs - Ocular pain, left eye - Essential (primary) hypertension - Exposure to other specified factors, initial encounter - Other longterm (current) drug therapy - Type 2 diabetes mellitus without complications - Contusion of left forearm, initial encounter - Nicotine dependence, unspecified, uncomplicated 08/02/2020 19:01 [facility] [place] TYPE: Emergency COMPLAINT: - L EYE IRRITATION 07/10/2020 23:51 [facility] [place] TYPE: Emergency COMPLAINT: - ABDOMINAL PAIN DIAGNOSES: - group home (current) use of oral hypoglycemic drugs - Essential (primary) hypertension - Other longterm (current) drug therapy - Type 2 diabetes mellitus without complications - Right lower quadrant pain - Personal history of nicotine dependence 11/22/2019 21:20 [facility] [place] TYPE: Emergency COMPLAINT: - HEADACHE,VOMITING,ABD PAIN DIAGNOSES: - Viral infection, unspecified - Nicotine dependence, unspecified, uncomplicated - Contact with and (suspected) exposure to other viral communicable diseases - Headache INPATIENT VISIT TRACKING (12 MO.) No inpatient visits to display in this time frame [email or web address]
[2020-11-14] MEDS ORDERED: MELOXICAM15 MG PO (06:51)
--- NOTE | 2020-11-14 20:59 | EKG ---
[facility] [address] [place] [address] Signed Sinus rhythm with 1st degree AV block Otherwise normal ECG When compared with ECG of 29-SEP-2019 20:31, CO interval has increased Vent. rate has decreased BY 39 BPM Confirmed by GITA GAMEZ DO ([id number]) on 11/14/2020 8:59:18 PM Electronically Signed By: GITA GAMEZ DO 11/14/202058 PATIENT NAME: YULIYA SMITH JR Electrocardiogram DATE OF : 73 PHYSICIAN: GITA GAMEZ DO REPORT #: [id number] REPORT IS CONFIDENTIAL AND NOT TO BE RELEASED WITHOUT AUTHORIZATION
== END 2020-11-14 09:16 | disposition home or self-care (01) ==
LOC: ED 06:17
DX: K21.9 Gastro-esophageal reflux disease without esophagitis (principal); I10 Essential (primary) hypertension; E11.9 Type 2 diabetes mellitus without complications; F17.200 Nicotine dependence, unspecified, uncomplicated; Z79.899 Other long term (current) drug therapy; Z79.84 Long term (current) use of oral hypoglycemic drugs
CPT/HCPCS: 74176; 80053; 81001; 84484; 85025; 93005; 93010; 96374; 96375; 99285-25; J1885; J2405

== ENCOUNTER 2020-11-24 08:38 | Emergency (ER) | payer OTHER ==
[~2020-11-24] VITALS: Ht 172.7 cm; Wt 116.8 kg
[~2020-11-24 08:38] MED LIST changes: +MELOXICAM15 MG PO
--- OUTSIDE RECORDS SUMMARY | 2020-11-24 08:40 | XMS ---
PreManage Notification: YULIYA SMITH Security Forest Ecology Professor Events 1 event(s) in the past 18 months Most recent security events: Elopement at [facility] 08/02/2020 19:01 - Other Details: PATIENT LWBS. CRITERIA MET - [facility] - Has Care Guidelines - [facility] - 2 Visits in 30 Days CARE PROVIDERS AYAD SIMMS Physician Screw Machine Repairer 10/18/2018-Current PHONE: [phone] Milton has no Care Guidelines for this patient. Care History Medical/Surgical 08/14/2020 [facility] - PATIENT WAS SEEN BY PCP THIEN SIMMS 08/14/20- NO FURTHER FOLLOW UP CONCERNS AT THIS TIME PER PATIENT. 11/28/2019 [facility] - [place] CONTACTED PCP OFFICE-[facility]- [place] STATED PATIENT HAS BEEN SEEN BY PCP OFFICE ON 10/25/19. NO FOLLOW UP APT SCHEDULED. - THEY DID NOT RECEIVE RECENT ED RECORD-THEY WILL CONTACT PATIENT FOR A FOLLOW UP APT TO BE SCHEDULED. 03/28/2019 [facility] - PATIENT HAS A FOLLOW UP APT WITH PCP - [facility] ON @ 11:30AM. E.D. VISIT COUNT (12 MO.) 5 [facility] [place] TOTAL 5 NOTE: Visits indicate total known visits. 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 of oral hypoglycemic drugs - Nicotine dependence, unspecified, uncomplicated - Other senior living (current) drug therapy - Gastro-esophageal reflux disease without esophagitis - Unspecified abdominal pain - Type 2 diabetes mellitus without complications - Essential (primary) hypertension 08/03/2020 01:01 [facility] [place] TYPE: Emergency COMPLAINT: - LT EYE IRRITATION/LT ARM PAIN DIAGNOSES: - Unspecified conjunctivitis - termite control service representative (current) use of oral hypoglycemic drugs - Ocular pain, left eye - Essential (primary) hypertension - Exposure to other specified factors, initial encounter - Other termite control service representative (current) drug therapy - Type 2 diabetes mellitus without complications - Contusion of left forearm, initial encounter - Nicotine dependence, unspecified, uncomplicated 08/02/2020 19:01 [facility] [place] TYPE: Emergency COMPLAINT: - L EYE IRRITATION 07/10/2020 23:51 [facility] [place] TYPE: Emergency COMPLAINT: - ABDOMINAL PAIN DIAGNOSES: - custodial (current) use of oral hypoglycemic drugs - Essential (primary) hypertension - Other termite control service representative (current) drug therapy - Type 2 diabetes mellitus without complications - Right lower quadrant pain - Personal history of nicotine dependence INPATIENT VISIT TRACKING (12 MO.) No inpatient visits to display in this time frame [id number]
== END 2020-11-24 09:16 | disposition home or self-care (01) ==
LOC: ED 08:38
DX: K59.00 Constipation, unspecified (principal); I10 Essential (primary) hypertension; E11.9 Type 2 diabetes mellitus without complications; F17.200 Nicotine dependence, unspecified, uncomplicated
CPT/HCPCS: 99283

== ENCOUNTER 2021-08-05 00:23 | Emergency (ER) | payer OTHER ==
[~2021-08-05] VITALS: Ht 172.7 cm; Wt 122.5 kg
--- OUTSIDE RECORDS SUMMARY | 2021-08-05 00:26 | XMS ---
PreManage Notification: YULIYA SMITH Security Cooler Worker Events 1 event(s) in the past 18 months Most recent security events: Elopement at [facility] 08/02/2020 19:01 - Other Details: PATIENT LWBS. CRITERIA MET - [facility] - Has Care Guidelines CARE PROVIDERS AYAD SIMMS Physician 10/18/2018-Current PHONE: [phone] Milton has no Care Guidelines for this patient. Care History Medical/Surgical 08/14/2020 [facility] - PATIENT WAS SEEN BY PCP THIEN SIMMS 08/14/20- NO FURTHER FOLLOW UP CONCERNS AT THIS TIME PER PATIENT. 11/28/2019 [facility] - [place] CONTACTED PCP OFFICE-[facility]- [place] STATED PATIENT HAS BEEN SEEN BY PCP OFFICE ON 10/25/19. NO FOLLOW UP APT SCHEDULED. - THEY DID NOT RECEIVE RECENT ED RECORD-THEY WILL CONTACT PATIENT FOR A FOLLOW UP APT TO BE SCHEDULED. 03/28/2019 [facility] - PATIENT HAS A FOLLOW UP APT WITH PCP - [facility] ON @ 11:30AM. E.D. VISIT COUNT (12 MO.) [address] [facility] TOTAL 3 NOTE: Visits indicate total known visits. ED/UCC VISIT TRACKING (12 MO.) 08/05/2021 00:24 [facility] [place] TYPE: Emergency COMPLAINT: - CHEST PAIN 11/24/2020 08:38 [facility] [place] TYPE: Emergency COMPLAINT: - CONSTIPATION DIAGNOSES: - Nicotine dependence, unspecified, uncomplicated - Essential (primary) hypertension - Type 2 diabetes mellitus without complications - Constipation, unspecified 11/14/2020 06:[address] [facility] [place] TYPE: Emergency COMPLAINT: - NAUSEA,RT SIDE PAIN DIAGNOSES: - shelter (current) use of oral hypoglycemic drugs - Nicotine dependence, unspecified, uncomplicated - Other retirement (current) drug therapy - Gastro-esophageal reflux disease without esophagitis - Unspecified abdominal pain - Type 2 diabetes mellitus without complications - Essential (primary) hypertension INPATIENT VISIT TRACKING (12 MO.) No inpatient visits to display in this time frame [id number]
--- NOTE | 2021-08-05 06:39 | EKG ---
[facility] [address] [place] [address] Signed Normal sinus rhythm Normal ECG When compared with ECG of 14-NOV-2020 08:17, No significant change was found Confirmed by GIOVANY LYONS MD ([id number]) on 08/05/2021 6:39:41 AM Electronically Signed By: GIOVANY LYONS MD 08/05/21 0639 PATIENT NAME: YULIYA SMITH JR Electrocardiogram DATE OF : 73 PHYSICIAN: GIOVANY LYONS MD REPORT #: [id number] REPORT IS CONFIDENTIAL AND NOT TO BE RELEASED WITHOUT AUTHORIZATION
== END 2021-08-05 03:53 | disposition home or self-care (01) ==
LOC: ED 00:23
DX: R07.89 Other chest pain (principal); R10.9 Unspecified abdominal pain; I10 Essential (primary) hypertension; E11.9 Type 2 diabetes mellitus without complications; F17.200 Nicotine dependence, unspecified, uncomplicated
CPT/HCPCS: 36415; 71045; 80053; 83690; 83735; 84484; 85025; 93005; 93010; 96374; 99285-25; A9270; J1885

== ENCOUNTER 2023-05-11 20:07 | Emergency (ER) | payer OTHER ==
[~2023-05-11] VITALS: Ht 172.7 cm; Wt 124.7 kg
[~2023-05-11 20:07] MED LIST changes: +METFORMIN HCL1000 MG PO; +VENTOLIN HFA18 GM INH
[2023-05-11 21:48] VITALS: BP 160/94
== END 2023-05-11 21:47 | disposition home or self-care (01) ==
LOC: ED 20:07
DX: S20.211A Contusion of right front wall of thorax, initial encounter (principal); V28.49XA Other motorcycle driver injured in noncollision transport accident in traffic accident, initial encounter; I10 Essential (primary) hypertension; R73.03 Prediabetes; F17.200 Nicotine dependence, unspecified, uncomplicated; Z79.899 Other long term (current) drug therapy; Z79.84 Long term (current) use of oral hypoglycemic drugs
CPT/HCPCS: 71101; 99284-25

== ENCOUNTER 2024-11-20 16:05 | Emergency (ER) | payer OTHER ==
[~2024-11-20] VITALS: Ht 172.7 cm; Wt 121.2 kg
[2024-11-20] MEDS ORDERED: IBUPROFEN 600 MG TAB PO ONE (17:00)
[2024-11-20] MEDS ORDERED: CYCLOBENZAPRINE10 MG PO (18:35)
[2024-11-20 18:40] VITALS: BP 161/146
== END 2024-11-20 18:44 | disposition home or self-care (01) ==
LOC: ED 16:05
DX: M54.50 Low back pain, unspecified (principal); I10 Essential (primary) hypertension; F17.200 Nicotine dependence, unspecified, uncomplicated; V23.49XA Other motorcycle driver injured in collision with car, pick-up truck or van in traffic accident, initial encounter; Z79.899 Other long term (current) drug therapy
CPT/HCPCS: 72100; 99283; A9270

== ENCOUNTER 2025-03-25 17:51 | Emergency (ER) | payer OTHER ==
[~2025-03-25] VITALS: Ht 172.7 cm; Wt 118.5 kg
[~2025-03-25 17:51] MED LIST changes: +CYCLOBENZAPRINE10 MG PO
[2025-03-25 18:20] LABS: BLOOD/HGB, URINE SMALL (Negative); KETONE, URINE NEGATIVE (Negative); LEUK ESTERASE, URINE NEGATIVE (negative); NITRITE, URINE NEGATIVE (negative)
[2025-03-25] MEDS ORDERED: MORPHINE SULFATE 4 MG/ML VIAL IV ONE (18:30)
[2025-03-25] MEDS ORDERED: SODIUM CHLORIDE 0.9% 1,000 ML IV ONE (18:30)
[2025-03-25 18:41] LABS: BASOPHILS 0.6 % (0.2-1.2); EOSINOPHILS 2.3 % (0.8-7.0); LYMPHOCYTES 27.1 % (21.8-53.1); MCH 31.2 PG (25.7-32.2); MCHC 36.0 g/dL (32.3-36.5); MCV 86.7 fL (79.0-92.2); MONOCYTES 7.8 % (5.3-12.2); NEUTROPHILS 61.7 % (34.0-67.9); RBC 4.58 M/uL (4.63-6.08)
[2025-03-25 18:45] LABS: CRYSTALS, URINE NONE SEEN (0-1+); EPITHELIAL CELLS, URINE NONE SEEN /lpf (0-1+)
[2025-03-25 18:46] LABS: BACTERIA, URINE RARE /hpf (negative); CASTS, URINE NONE SEEN \\lpf; REFLEX CULTURE, URINE No (No)
[2025-03-25 19:05] LABS: ALT (SGPT) 25.0 U/L (14-59); AST (SGOT) 8.0 U/L (15-37); GLOMERULAR FILTRATION RATE,EST 102.0 mL/min (>60); PROTEIN, TOTAL 6.5 g/dL (6.4-8.2); UREA NITROGEN 11.0 mg/dL (7-18)
[2025-03-25] MEDS ORDERED: COLACE100 MG PO (20:27)
[2025-03-25] MEDS ORDERED: HYDROCODON-ACE1 EA10 PO (20:27)
[2025-03-25] MEDS ORDERED: ONDANSETRON ODT8 MG PO (20:27)
[2025-03-25] MEDS ORDERED: HYDROCODONE BIT/ACETAMINOPHEN 5/325 MG 1 TAB HOME.PACK PO ONE (20:30)
[2025-03-25] MEDS ORDERED: ONDANSETRON 4 MG HOME.PACK SL ONE (20:30)
[2025-03-25 20:40] VITALS: BP 153/94
== END 2025-03-25 20:40 | disposition home or self-care (01) ==
LOC: ED 17:51
PROVIDERS: Family Medicine
DX: K42.9 Umbilical hernia without obstruction or gangrene (principal); I10 Essential (primary) hypertension; M19.90 Unspecified osteoarthritis, unspecified site
CPT/HCPCS: 36415; 74177; 80053; 81001; 83690; 85025; 96374; 96375; 99284-25; A9270; J2270; J2405; J7030; Q9967

== ENCOUNTER 2025-03-28 16:10 | Inpatient (IN) | payer OTHER ==
[~2025-03-28] VITALS: Ht 172.7 cm; Wt 114.5 kg
[~2025-03-28 16:10] MED LIST changes: +COLACE100 MG PO; +HYDROCODON-ACE1 EA10 PO; +SEVOFLURANE 250 ML BTL INH ONE
--- NOTE | 2025-03-28 16:40 | NUR ---
PATIENT ARRIVES TO CCU RM 126 AMBULATORY FOR A DIRECT ADMIT BY DR. COX. PATIENT HAS STEADY GAIT AND ARRIVES IN STABLE CONDITION. PATIENT PROVIDED GOWN TO CHANGE INTO. NO EVIDENCE OF ACUTE DISTRESS NOTED AT THIS TIME.
[2025-03-28] MEDS ORDERED: HYDROCODONE/ACETA 5/325 TAB PO PRN (16:45)
[2025-03-28] MEDS ORDERED: MORPHINE SULFATE 4 MG/ML VIAL IV PRN (16:45)
[2025-03-28] MEDS ORDERED: LISINOPRIL20 MG PO (17:07)
[2025-03-28] MEDS ORDERED: METFORMIN HCL1000 MG PO (17:07)
[2025-03-28] MEDS ORDERED: VARENICLINE1 EACH PO (17:09)
[2025-03-28] MEDS ORDERED: VARENICLINE TART1 MG PO (17:10)
[2025-03-28 17:11] VITALS: BP 155/49
[2025-03-28] MEDS ORDERED: CYCLOBENZAPRINE10 MG PO (17:11)
[2025-03-28 17:18] LABS: BASOPHILS 0.7 % (0.2-1.2); EOSINOPHILS 2.1 % (0.8-7.0); LYMPHOCYTES 28.0 % (21.8-53.1); MCH 31.4 PG (25.7-32.2); MCHC 36.6 g/dL (32.3-36.5); MCV 85.8 fL (79.0-92.2); MONOCYTES 7.9 % (5.3-12.2); NEUTROPHILS 60.9 % (34.0-67.9); RBC 5.07 M/uL (4.63-6.08)
[2025-03-28 17:33] LABS: GLOMERULAR FILTRATION RATE,EST 105.0 mL/min (>60); UREA NITROGEN 9.0 mg/dL (7-18)
--- NOTE | 2025-03-28 17:42 | NUR ---
PATIENT ADMISSION COMPLETE. IV START INITIATED IN L. FA. LABS COLLECTED AND SENT PER MD ORDER. PATIENT ALERT AND ORIENTED. VITAL SIGNS STABLE. PATIENT ABLE TO AMBULATE IN ROOM. CHG WIPE DOWN COMPLETE. RR EVEN AND UNLABORED. PATIENT DENIES NAUSEA OR SOB AT THIS TIME. ABDOMEN SOFT AND TENDER TO PALPATION AROUND UMBILICUS. PATIENT DENIES ABDOMINAL DISTENTION. PATIENT STATES LAST BM WAS AROUND 1206 AND STATES IT IS "NORMAL" FOR HIM. PATIENT ABLE TO VOID W/O DIFFICULTY IN URINAL. SKIN C/D/I. PATIENT RATES PAIN 2/10 AND DENIES NEED FOR PAIN MEDICATION AT THIS TIME. NO FURTHER NEEDS IDENTIFIED. PATIENT SITTING UP AT EDGE OF BED EATING DINNER. CALL LIGHT IN REACH
--- NOTE | 2025-03-28 18:14 | NUR ---
PHONE CALL PLACED TO MD. UPDATED ON PATIENT BG AND URINE OUTPUT. NEW ORDERS RECEIVED. SEE MAR.
[2025-03-28] MEDS ORDERED: SODIUM CHLORIDE 0.9% 1,000 ML IV SCH (18:15)
[2025-03-28] MEDS ORDERED: GLUCAGON,HUMAN RECOMBINANT 1 MG/ML VIAL SUB-Q PRN (18:15)
[2025-03-28] MEDS ORDERED: IBLOOD GLUCOSE TEST STRIP 1 EA TEST XX PRN (18:15)
[2025-03-28] MEDS ORDERED: DEXTROSE 50% 50 ML SYR IV PRN ×2 (18:15)
[2025-03-28] MEDS ORDERED: DEXTROSE 5% 1,000 ML IV PRN (18:15)
[2025-03-28] MEDS ORDERED: INSULIN LISPRO 100 UNIT/ML ML SUB-Q SCH ×3 (18:30→21:00)
[2025-03-28] MEDS ORDERED: AMP/SULBACTAM SOD 3 GM in SODIUM CHLORIDE 0.9% 100 ML IV SCH (20:00)
--- NOTE | 2025-03-28 20:30 | NUR ---
PATIENT ALERT AND AWAKE LYING IN BED WITH HOB ELEVATED. PATIENT GIVEN EVENING MEDICATION, INITIALLY DIDN'T WANT HEPARIN DUE TO NOT WANTING TO BE POKED. WE DISCUSSED REASONING AND RISKS AND PATIENT WAS AGREEABLE FOR MEDICATION. PATIENT REPORTS PAIN 2/10, NPT REQUESTING PAIN MEDICATIONS AT THIS TIME. IV FLUIDS AND ANTIBIOTICS INFUSING WNL. PATIENT DENIES NAUSEA, ENDORSES PAIN WITH PALPATION IN ABDOMEN, MOSTLY AROUND UMBILICUS. PATIENT UP TO BATHROOM. PATIENT STEADY ON FEET AND DOES NOT REPORT FEELING LIGHTHEADED. PATIENT COMMUNICATED PLANS TO CALL WHEN FINISHED USING THE RESTROOM.
[2025-03-28] MEDS ORDERED: HEParin SOD (PORCINE) 5,000 UNIT/ML SDV SUB-Q SCH (21:00)
[2025-03-28] MEDS ORDERED: IBLOOD GLUCOSE TEST STRIP 1 EA TEST XX SCH (21:00)
[2025-03-28 21:30] VITALS: BP 148/80
--- NOTE | 2025-03-28 21:57 | NUR ---
PATIENT CALLED FOR PHONE, UNABLE TO REACH PHONE WHERE IT WAS CHARGING. IV FLUIDS INFUSING WNL, HOME CPAP IN PLACE. PATIENT DENIES FURTHER NEEDS.
[2025-03-29] VITALS (9 sets, daily range): BP systolic 119–162; BP diastolic 66–96
--- NOTE | 2025-03-29 00:04 | NUR ---
PATIENT RESTING IN BED WITH EYES CLOSED, RESPIRATIONS EVEN AND UNLABORED, HOME CPAP IN PLACE. FOOD AND DRINK REMOVED FROM BEDSIDE TABLE. WHEN PATIENT AWAKE, WILL NOTIFY HIM OF NPO STATUS. CALL LIGHT AND PERSONAL BELONGINGS ARE AT THE BEDSIDE.
--- NOTE | 2025-03-29 03:58 | NUR ---
PATIENT RESTING WITH EYES CLOSED, EVEN UNLABORED RESPIRATIONS WITH HOME CPAP IN PLACE. IV FLUIDS INFUSING WNL. PATIENT REMAINS NPO.
--- NOTE | 2025-03-29 04:35 | NUR ---
PATIENT RESTING WITH EYES CLOSED, RESPIRATIONS EVEN AND UNLABORED, CPAP IN PLACE. IV FLUIDS INFUSING WNL
--- NOTE | 2025-03-29 05:48 | NUR ---
PATIENT AWAKE AND UP TO BATHROOM. VOIDED 600 ML CONCENTRATED URINE. CHG WIPE DOWN DONE WITH SPECIAL ATTENTION TO THE UMBILICUS. GOWN CHANGES. IV FLUIDS INFUSING WNL. PATIENT REPORTS BEING THIRSTY BUT DENIES FURTHER NEEDS OTHERWISE. CALL LIGHT AND PERSONAL BELONGINGS ARE WITHIN REACH.
[2025-03-29 05:50] LABS: GLOMERULAR FILTRATION RATE,EST 106.0 mL/min (>60); UREA NITROGEN 12.0 mg/dL (7-18)
--- NOTE | 2025-03-29 07:15 | NUR ---
HANDOFF REPORT RECEIVED FROM RADHA ACOSTA. ALL QUESTIONS ANSWERED. PATIENT RESTING IN BED. IVF INFUSING PER EMAR. CALL LIGHT IN REACH
[2025-03-29] MEDS ORDERED: INSULIN LISPRO 100 UNIT/ML ML SUB-Q SCH ×3 (08:00→17:00)
--- NOTE | 2025-03-29 08:25 | NUR ---
PATIENT ASSESSMENT COMPLETE. PATIENT ALERT AND ORIENTED. PATIENT DENIES NAUSEA OR SOB AT THIS TIME. VITAL SIGNS STABLE. PATIENT RATING ABDOMINAL PAIN 2/10 AND IS TOLERABLE AT THIS TIME. IV SITE INTACT AND WNL. IVF INFUSING PER EMAR. ABDOMEN SOFT BUT TENDER TO PALPATION. SKIN INTACT. PATIENT UPDATED ON POC. PATIENT REMAINS NPO FOR SURGERY AT THIS TIME. NO FURTHER NEEDS IDENTIFIED. CALL LIGHT IN REACH.
--- NOTE | 2025-03-29 10:07 | NUR ---
UR CLINICAL REVIEW: [facility], MEETS INPT FOR GASTROENTEROLOGY GRG INCARCERATED UMBILICAL HERNIA WITH CELLULITIS IV ANTIBIOTICS, NPO, IV FLUIDS, SURGICAL INTERVENTION REQUIRED. [facility] INPT 03/28/2025 @ 1629 ORDER MATCHES REG AUTH PENDING, WILL SEND CLINICALS FOR REVIEW PLAN TO DC TO HOME WHEN MEDICALLY READY DC REVIEW 03/31/2025
--- NOTE | 2025-03-29 10:14 | NUR ---
PATIENT SITTING UP IN BED. URINAL EMPTIED. PATIENT DENIES NEEDS AT THIS TIME. IVF INFUSING PER EMAR. NO EVIDENCE OF ACUTE DISTRESS NOTED. CALL LIGHT IN REACH
--- NOTE | 2025-03-29 11:18 | NUR ---
patient resting in bed. rr even and unlabored. patient denies needs. call light in reach
--- NOTE | 2025-03-29 11:45 | NUR ---
PATIENT UPDATED ON POC. BREANNA THORPE IN ROOM TO OBTAIN VITALS. NO FURTHER NEEDS IDENTIFIED, CALL LIGHT IN REACH
--- NOTE | 2025-03-29 12:02 | NUR ---
PATIENT OFF UNIT WITH OR CREW.
[2025-03-29] MEDS ORDERED: LIDOCAINE HCL 2% 5 ML SDV ONE (13:23)
[2025-03-29] MEDS ORDERED: ROCURONIUM BROMIDE 50 MG/5 ML SYR ONE (13:23)
[2025-03-29] MEDS ORDERED: fentaNYL citrate 100 MCG/2 ML VIAL ONE ×2 (13:24→14:30)
[2025-03-29] MEDS ORDERED: BUPIVACAINE HCL 0.5% 30 ML VIAL ONE (13:34)
--- NOTE | 2025-03-29 13:57 | EKG ---
[facility] [address] [facility] [place] [address] Signed Normal sinus rhythm Normal ECG When compared with ECG of 05-AUG-2021 00:25, No significant change was found Confirmed by Isabel Ellington DO ([id number]) on 03/29/2025 1:57:13 PM Electronically Signed By: ISABEL ELLINGTON DO 03/29/25 1357 PATIENT NAME: YULIYA SMITH JR Electrocardiogram DATE OF : 73 PHYSICIAN: ISABEL ELLINGTON DO REPORT #: [id number] REPORT IS CONFIDENTIAL AND NOT TO BE RELEASED WITHOUT AUTHORIZATION
--- NOTE | 2025-03-29 14:04 | NUR ---
Pt transferred from CCU to room 124, pt alert and oriented, teary eyed, follows instructions. ambulated from ccu to room, ambulated to front Lobby earlier, tolerated well. CIWA 3
[2025-03-29] MEDS ORDERED: DEXAMETHASONE SOD PHOS 4 MG/ML VIAL ONE (14:11)
--- NOTE | 2025-03-29 14:11 | NUR ---
THIS RN MOVED ALL PT BELONGINGS TO MED-SURG ROOM 123. PATIENT REMAINS IN OR AT THIS TIME, OR CHARGE NOTIFIED PATIENT WILL BE IN 123 UPON HIS ARRIVAL BACK TO FLOOR. PT KEYS/WALLET MOVED FROM LOCK BOX AND PUT IN THE LOCK BOX IN 123. HOME CPAP/CELL PHONE ON BEDSIDE TABLE AND MOVED TO NEW ROOM.
[2025-03-29] MEDS ORDERED: ACETAMINOPHEN 1,000 MG/100 ML VIAL ONE (14:13)
[2025-03-29] MEDS ORDERED: LIDOCAINE HCL 1% 30 ML SDV ONE (14:16)
--- NOTE | 2025-03-29 14:30 | NUR ---
HANDOFF REPORT PROVIDED TO RADHA BLAIR. ALL QUESTIONS ANSWERED. PATIENT BELONGINGS MOVED TO MS RM 123. PATIENT REMAINS IN OR AT THIS TIME
[2025-03-29] MEDS ORDERED: HYDROmorphone HCL 1 MG/ML SYR IV PRN (15:15)
[2025-03-29] MEDS ORDERED: NALOXONE HCL 0.4 MG SYR IV PRN (15:15)
[2025-03-29] MEDS ORDERED: fentaNYL citrate 50 MCG/ML SDV IV PRN (15:15)
[2025-03-29] MEDS ORDERED: IBLOOD GLUCOSE TEST STRIP 1 EA TEST VI PRN (15:15)
--- NOTE | 2025-03-29 15:33 | NUR ---
Spoke with Sunday. He lives in a two story apartment with 13 steps. He denies issues getting in and out of the home. He does not think it will be an issues after surgery.His bathroom and bedroom are upstairs. He uses a CPAP at home but no other DME. He lives with his and she will help as needed. He drives, she does not. Pt denies other needs and plans on dc to home today.
--- NOTE | 2025-03-29 15:55 | NUR ---
03/29/25 1555 Whit Haji 1532- PT PRESENTS TO PACU, SEMI NAVARRETE POSITION, NON REACTIVE TO STIMULUS. OPA IN PLACE, BREATHING EVEN AND NON LABORED, O2 AT 6L PER MASK. LR INFUSING TO LFA IV. ABD ROUND, SOFT, NON DISTENDED WITH ABD BINDER IN PLACE. ALL MONITORS IN PLACE. 1542- PT STARTING TO COUGH, OPA REMOVED AND THIS RN SPLINTING ABD. PT OPENS EYES SLIGHTLY BUT NO VERBAL ANSWER. 1550- PT TURNS HEAD TO VOICE, OPENS ONE EYE AND SHAKES HEAD NO TO NAUSEA. PT TURNS HAND SIDE TO SIDE TO PAIN. WILL CONTINUE TO MONITOR. 1553- MOVED TO ROOM AIR AT THIS TIME. PT VERBALIZES 10/10 PAIN.
[2025-03-29] MEDS ORDERED: DEXTROSE 50% 50 ML SYR IV PRN ×2 (16:45)
[2025-03-29] MEDS ORDERED: DEXTROSE 5% 1,000 ML IV PRN (16:45)
[2025-03-29] MEDS ORDERED: GLUCAGON,HUMAN RECOMBINANT 1 MG/ML VIAL SUB-Q PRN (16:45)
[2025-03-29] MEDS ORDERED: IBLOOD GLUCOSE TEST STRIP 1 EA TEST XX PRN (16:45)
[2025-03-29] MEDS ORDERED: IBLOOD GLUCOSE TEST STRIP 1 EA TEST VI SCH (17:00)
--- NOTE | 2025-03-29 17:29 | NUR ---
6685 - PT ARRIVED FROM PACU VIA BED, DROWSY, COOPERATIVE, ON 2LNC, CPOX POST OP AT BEDSIDE. SATS 99%, pT ABD/UMBILICAL AREA INCISION W SCANT AMOUONT OF DRAINAGE PINKISH/RED. COVERED WITH DERMABOND AND GAUZE, ABD BINDER IN PLACE, COOPERATIVE WITH VITALS AND ASSESSMENTS. ABD LARGE OBESE, TENDER, VERY HYPOACTIVE BOWEL TONES, DENIES PASSING GAS. LBM 03/24/25. HAS NOT VOIDED SINCE SURGERY, SCDS IN PLACE, SL LA, WILL RESTART PREVIOUS IVF. PT USES HOME CPAP AT HS, AT BEDSIDE. HAS DENTURES. CBG 183 AT THIS TIME, RECEIVED [address] ELLINGTON IN ROOM TALKING TO PT. PT HAS TOLERATED ICE CHIPS, OJ, AND WUIS EATING 60GRAM CARB DIET, AWARE TO EAT SLOWLY, STATED UNDERSTANDING, PT DRIONKS 18-24 CUPS OF COFFEE AT DAY AND IS A HEAVY 2+ PACK SMOKER, DENIES NEEDING HUMA PATCH AT THIS TIME. AWARE TOLIMIT FLUID INTAKE AT THIS TIME HE JUST GOT BACK FROM SURGERY, INSTRUCTED ON HOURLY VITALS. STATED UNDERSTANDING
--- NOTE | 2025-03-29 18:10 | NUR ---
PATIENT IS SITTING UP IN BED EATING DINNER. CALL LIGHT IS WITHIN REACH AND NO FURTHER NEEDS AT THIS TIME.
--- NOTE | 2025-03-29 18:43 | NUR ---
Pt awake, on 1LNC O2, post op CPOX at bedside, sats 99%, no c/o resp distress. Ate 100% dinner, no c/o n/v. Has tolerated large amount of lfuid and ice chips. and soft, tender, abd brace in place, scdcs in place. aware of NTV. urinal at bedside. able to move legs, sitting up position in bed
--- NOTE | 2025-03-29 19:27 | NUR ---
RECEIVED REPORT FROM RADHA BLAIR. SKIN CHECK DONE AT BEDSIDE W/ ROSSY. PT AWAKE, REQUESTED CRACKERS-PROVIDED. CALL LIGHT WITHIN REACH.
--- NOTE | 2025-03-29 19:45 | NUR ---
in room to collect last set post op vs, vss. pt on ra, rr even and unlabored. pt verbalized wanting to stand and get oob to void, stating, "i don't care what anyone says, i gotta get up and stand". primary rn made aware and now in room to assist pt. pt's first time standing post surgery.
[2025-03-29] MEDS ORDERED: INSULIN GLARGINE-YFGN 100 UNIT/ML ML SUB-Q SCH (21:00)
--- NOTE | 2025-03-29 21:56 | NUR ---
RESTING IN BED, WANTS TO STAND UP AND USE BR. PT AMB TO BR W/ SBA FOR LTM. VOIDS WNL. POST-OP VS COMPLETE. REPORTS 11/26 ABD INCISIONAL PAIN-PRN HYDROCODONE ADMINISTERED. LSC, CPOX IN PLACE. ON RA. HRR. ABD BINDER IN PLACE. ABD OBESE. ABD TENDER. BTA X 4. NO NAUSEA. NO FLATUS. MIDLINE ABD INC W/ GLUE AND GUAZE FOR ABD BINDER PROTECTION, INC CDI. SCD'S TO BLE. LFA IV INFUSING LR, IV SITE WNL. PT DRINKING WATER AND COFFEE AND TOLERATING FINE. CALL LIGHT WITHIN REACH.
--- NOTE | 2025-03-29 22:23 | NUR ---
SANDWICH BOX PROVIDED PER REQUEST. PT REPORTS PAIN TOLERABLE AT 2/10.
--- NOTE | 2025-03-29 22:52 | NUR ---
PT ASSISTED TO BR. VOIDED 1000cc CLEAR YELLOW URINE.
--- NOTE | 2025-03-29 23:26 | NUR ---
PT AMBULATED 1 LAP IN HALLS IND. BACK TO BED. CPOX IN PLACE, IVF INFUSING.
[2025-03-30] VITALS (11 sets, daily range): BP systolic 142–162; BP diastolic 77–90
--- NOTE | 2025-03-30 00:22 | NUR ---
call light answered, pt up sba to bathroom and voided 400mls, back in bed. cpox resumed and call light and belongings in reach. fresh water given per pt requst.
--- NOTE | 2025-03-30 01:45 | NUR ---
PT UP TO BR, SBA. VOIDS WNL. ASSISTED BACK TO BED, PT PERSEVERATING ON NEXT MEAL OR DRINK. ENC PT TO TRY AND SLEEP. C-PAP PLACED, CALL LIGHT WITHIN REACH.
--- NOTE | 2025-03-30 03:20 | NUR ---
VSS. PT SLEEPING SOUNDLY, ONLY WOKE BRIEFLY FOR VS. C-PAP IN PLACE.
--- NOTE | 2025-03-30 06:15 | NUR ---
PT SLEEPING, AWAKENED FOR VS. VSS. REPORTS ABD PAIN-MEDICATED W/ PRN NORCO. BTA, NO NAUSEA. REPORTS FLATUS OVERNIGHT. ABD BINDER IN PLACE.
--- NOTE | 2025-03-30 07:10 | NUR ---
RECIEVED REPORT FROM RADHA HUGO. PT IS RESTING IN BED WITH EYES OPEN. PT DENIES ANY NEEDS AT THIS TIME. CALL LIGHT IS WITHIN REACH.
--- NOTE | 2025-03-30 07:22 | NUR ---
UR DC REVIEW: TOLERATING PO INTAKE, IV FLUIDS, IV ANTIBIOTICS, MANAGEMENT OF GLUCOSE LEVELS. PLAN TO DC TO HOME WHEN MEDICALLY READY ADD: PENDING NO ESCALATIONS NEEDED
--- NOTE | 2025-03-30 07:44 | NUR ---
PLACED CALL TO DR. COX REGARDING LACK OF MORNING LABS. STATED TO PUT ORDERS IN FOR BMP. NO FURTHER ORDERS. PHONE CALL ENDED.
[2025-03-30 08:15] LABS: GLOMERULAR FILTRATION RATE,EST 106.0 mL/min (>60); UREA NITROGEN 10.0 mg/dL (7-18)
--- NOTE | 2025-03-30 08:30 | NUR ---
PATIENT IN CHAIR AT THIS TIME. CAT TENDER CHARTED HOURLY ROUNDS AND ASSISTED PATIENT TO CHAIR. CALL LIGHT WITHIN REACH, NO FURTHER NEEDS AT THIS TIME.
--- NOTE | 2025-03-30 08:37 | NUR ---
MED REC COMPLETE
--- NOTE | 2025-03-30 08:52 | NUR ---
ALERT AND ORIENTED IN RECLINER. NO CM NEEDS AT THIS TIME. PLANS TO DC TO HOME WHEN MEDICALLY READY, POTENTIALLY TODAY.
--- NOTE | 2025-03-30 09:42 | NUR ---
PATIENT IN CHAIR AT THIS TIME. TAILERCPA CHARTED VITALS AND I&O'S. CALL LIGHT WITHIN REACH, NO FURTHER NEEDS.
--- NOTE | 2025-03-30 10:50 | NUR ---
PT RESTING IN CHAIR AT THIS TIME. EYES OPEN, RR EVEN AND UNLABORED. CALL LIGHT AND PERSONAL BELONGINGS ARE WITHIN REACH.
--- NOTE | 2025-03-30 11:30 | NUR ---
FRESH COFFEE AND ICE WATER BROUGHT. PT IN CHAIR ON PHONE. CALL LIGHT WITHIN REACH. PT DENIES ANY NEEDS AT THIS TIME.
--- NOTE | 2025-03-30 13:40 | NUR ---
PT RESTING IN BED WATCHING TV. PT DENIES ANY NEEDS AT THIS TIME. CALL LIGHT AND PERSONAL BELONGINGS ARE WITHIN REACH.
--- NOTE | 2025-03-30 14:30 | NUR ---
PT AMBULATING IN [place] WITH RADHA TINSLEY AT THIS TIME
--- NOTE | 2025-03-30 14:41 | NUR ---
Patient ambulated in hallway x2 laps around nurses station, tolerated well. Fresh ice water and coffee provided to patient. Patient reports passing flatus, no nausea and tolerable pain.
--- NOTE | 2025-03-30 15:42 | NUR ---
Patient sitting up chair watching tv, no acute distress. Patient reports he is looking forward to discharge home. Patient denies nausea, tolerating diet well.
[2025-03-30] MEDS ORDERED: LABETALOL HCL 20 MG/4 ML VIAL IV PRN (19:30)
[2025-03-30] MEDS ORDERED: ZOLPIDEM TARTRATE 5 MG TAB PO PRN (19:30)
[2025-03-30] MEDS ORDERED: LORazepam 2 MG/ML VIAL IV PRN (19:30)
[2025-03-30] MEDS ORDERED: CAPSAICIN 0.1% 56.6 GM TUBE TOP PRN (19:30)
[2025-03-30] MEDS ORDERED: METFORMIN HCL1000 M1 PO (19:41)
[2025-03-30] MEDS ORDERED: JARDIANCE10 MG PO (19:41)
[2025-03-30] MEDS ORDERED: GLIMEPIRIDE1 MG PO (19:42)
[2025-03-30] MEDS ORDERED: CEPHALEXIN500 MG PO (19:42)
--- NOTE | 2025-03-30 19:50 | NUR ---
Pt in chair, IVF stopped and SL dc'd, pt is to be dc'd home, abd binder in place, umbilical area incision CDI slight redness around umbilical area much improved from yesterday. gauze over dermabond
--- NOTE | 2025-03-30 20:12 | NUR ---
IV cath dc'd, tip intact, 2x2 to area. Pt wearing abd binder, aware to keep binder at all times until seen MD, stated understanding. Bilat sclera red, no discharge noted at thist umair. Denies c/o pain. Dressed self, denies c/o pain. DC instructions given verbally and written, has Rx and work release form given. DC home via w/c with all belongings and Dc instructions.
[2025-03-30] MEDS ORDERED: INSULIN GLARGINE-YFGN 100 UNIT/ML ML SUB-Q SCH (21:00)
[2025-03-31] MEDS ORDERED: AMLODIPINE BESYLATE 5 MG TAB PO SCH (09:00)
== END 2025-03-30 20:12 | disposition home or self-care (01) | DRG 354 ==
LOC: MS 16:10 → CCU 16:20 → MS 03-29 14:15
PROVIDERS: ADMIT Surgery; ATTEND Surgery
PROC: 3E03329 Introduction of Other Anti-infective into Peripheral Vein, Percutaneous Approach (ICD-10-PCS; 2025-03-28)
PROC: 0WQF0ZZ Repair Abdominal Wall, Open Approach (ICD-10-PCS; principal; 2025-03-29 13:30)
DX: K42.0 Umbilical hernia with obstruction, without gangrene (principal); L03.311 Cellulitis of abdominal wall; F17.210 Nicotine dependence, cigarettes, uncomplicated; F41.9 Anxiety disorder, unspecified; E11.65 Type 2 diabetes mellitus with hyperglycemia; Z79.84 Long term (current) use of oral hypoglycemic drugs; Z79.891 Long term (current) use of opiate analgesic; Z79.899 Other long term (current) drug therapy
CPT/HCPCS: 00750; 36415; 80048; 82375; 83036; 83735; 85025; 93005; 93010; 94762; A9270; J0131; J0295; J1100; J1171; J1644; J1815; J2003; J2405; J2704; J3010; J3490; J7030